=== PATIENT | female | born 1970 | race Caucasian/White ===

== ENCOUNTER → 2020-12-12 14:20 | Outpatient (CLI) | payer OTHER, MEDICAID ==
[2020-05-30 14:56] VITALS: BMI 22.7
[~2020-12-12 14:20] MED LIST: CELEXA20 MG PO; LAMICTAL200 MG PO; PRAVACHOL20 MG PO; PROTONIX40 MG PO; TENORMIN25 MG PO; THORAZINE50 MG PO; VALIUM10 MG PO
[2020-12-12 14:42] LABS: BASOPHILS 0.6 % (0-2); EOSINOPHILS 0.1 % (0-7); HEMATOCRIT 38.1 % (36.0-48.0); HEMOGLOBIN 13.2 g/dL (12-16); LYMPHOCYTES 47.4 % (15-50); MCH 32.8 pg (26.0-34.0); MCHC 34.5 g/dL (31.0-37.0); MCV 95.1 fL (80.0-100.0); MEAN PLATELET VOLUME 7.6 fL (7.4-10.4); NEUTROPHILS 45.9 % (40-80); PLATELET COUNT 201 10x3/uL (130-400); RBC 4.01 10x6/uL (4.00-5.40); RDW 13.7 % (11.5-14.5); WBC 7.9 10x3/uL (4.8-10.8)
== END | disposition home or self-care (01) ==
LOC: D.LAB 14:20
PROVIDERS: ATTEND Internal Medicine Gastroenterology
DX: K92.1 Melena (principal)